=== PATIENT | female | born 1975 ===

== ENCOUNTER 2025-04-10 18:31 | Inpatient (IN) | payer MEDICAID ==
[2025-04-10 19:11] LABS: BASOPHILS ABSOLUTE AUTO 0.03 K/uL (0.00-0.10); BASOPHILS PERCENT AUTO 0.1 % (0.1-1.3); EOSINOPHILS PERCENT AUTO 0.0 % (0.0-5.4); IMMATURE GRAN ABSOLUTE AUTO 0.13 K/uL (0.00-0.23); IMMATURE GRAN PERCENT AUTO 0.6 % (0.0-0.7); LYMPHOCYTES ABSOLUTE AUTO 1.36 K/uL (0.8-3.3); LYMPHOCYTES PERCENT AUTO 6.1 % (11.4-47.7); MONOCYTES ABSOLUTE AUTO 0.74 K/uL (0.20-0.90); MONOCYTES PERCENT AUTO 3.3 % (3.3-12.6); NEUTROPHILS ABSOLUTE AUTO 20.07 K/uL (1.0-7.6); NEUTROPHILS PERCENT AUTO 89.9 % (40.0-78.1); PLATELET COUNT,PLT 230 K/uL (130-375); RED BLOOD CELL COUNT 4.55 M/uL (3.77-5.24); WHITE BLOOD CELL COUNT,WBC 22.3 K/uL (3.2-11.0)
[2025-04-10 19:12] LABS: EOSINOPHILS ABSOLUTE AUTO 0.00 K/uL (0.00-0.40)
[2025-04-10] MEDS ORDERED: Ondansetron 4 MG/2 ML SDV ONE (19:17)
[2025-04-10] MEDS ORDERED: Glycopyrrolate 0.2 MG/ML 5 ML MDV ONE (19:17)
[2025-04-10] MEDS ORDERED: Succinylcholine 200 MG/10 ML MDV ONE (19:17)
[2025-04-10] MEDS ORDERED: Dexamethasone 4 MG/ML SDV ONE (19:17)
[2025-04-10] MEDS ORDERED: fentaNYL 250 MCG/5 ML SDV ONE (19:17)
[2025-04-10] MEDS ORDERED: Propofol 200 MG/20 ML SDV ONE (19:17)
[2025-04-10 19:28] LABS: BLOOD UREA NITROGEN,BUN 12.0 mg/dL (7-18); CARBON DIOXIDE,CO2 22.0 mmol/L (21-32); CHLORIDE,CL 105.0 mmol/L (100-108); CREATININE 0.7 mg/dL (0.6-1.0); EST CRCL DRUG DOSING (CG) 82.1 mL/min; ESTIMATED GFR 105.0 mL/min (>60); GLUCOSE RANDOM 125.0 mg/dL (74-106); POTASSIUM,K 3.7 mmol/L (3.6-5.2); SODIUM,NA 136.0 mmol/L (140-148)
[2025-04-10 19:29] LABS: INR 1.1
[2025-04-10] MEDS ORDERED: Lactated Ringers 1,000 ML ONE (19:55)
[2025-04-10] MEDS: Bupivacaine 0.25%/EPINEPHrine 1:200,000 30 ML SDV ONE (20:17)
[2025-04-10] MEDS ORDERED: fentaNYL 100 MCG/2 ML SDV ONE (21:56)
[2025-04-11] MEDS: Piperacillin/Tazobactam/Dext 100 ML IV SCH (00:27)
[2025-04-11] MEDS: Heparin Sodium 5,000 Units/ML Vial SUBCUT SCH (05:39)
[2025-04-11 06:26] LABS: BASOPHILS ABSOLUTE AUTO 0.04 K/uL (0.00-0.10); BASOPHILS PERCENT AUTO 0.1 % (0.1-1.3); EOSINOPHILS PERCENT AUTO 0.0 % (0.0-5.4); IMMATURE GRAN ABSOLUTE AUTO 0.30 K/uL (0.00-0.23); IMMATURE GRAN PERCENT AUTO 1.0 % (0.0-0.7); LYMPHOCYTES ABSOLUTE AUTO 1.52 K/uL (0.8-3.3); LYMPHOCYTES PERCENT AUTO 5.2 % (11.4-47.7); MONOCYTES ABSOLUTE AUTO 0.96 K/uL (0.20-0.90); MONOCYTES PERCENT AUTO 3.3 % (3.3-12.6); NEUTROPHILS ABSOLUTE AUTO 26.20 K/uL (1.0-7.6); NEUTROPHILS PERCENT AUTO 90.4 % (40.0-78.1); PLATELET COUNT,PLT 273 K/uL (130-375); RED BLOOD CELL COUNT 3.76 M/uL (3.77-5.24); WHITE BLOOD CELL COUNT,WBC 29.0 K/uL (3.2-11.0)
[2025-04-11 06:41] LABS: EOSINOPHILS ABSOLUTE AUTO 0.00 K/uL (0.00-0.40)
[2025-04-11 06:47] LABS: BLOOD UREA NITROGEN,BUN 16.0 mg/dL (7-18); CARBON DIOXIDE,CO2 20.0 mmol/L (21-32); CHLORIDE,CL 108.0 mmol/L (100-108); CREATININE 0.8 mg/dL (0.6-1.0); EST CRCL DRUG DOSING (CG) 71.84 mL/min; ESTIMATED GFR 89.0 mL/min (>60); GLUCOSE RANDOM 158.0 mg/dL (74-106); POTASSIUM,K 4.1 mmol/L (3.6-5.2); SODIUM,NA 138.0 mmol/L (140-148)
[2025-04-11] MEDS: Ondansetron 4 MG/2 ML SDV IV PRN (07:03)
[2025-04-11] MEDS: Insulin Lispro 100 Unit/ML 3 ML KwikPen SUBCUT SCH (07:33)
[2025-04-11] MEDS: Acetaminophen 1,000 MG in Premix Bag 1 BAG IV ONE (07:37)
[2025-04-11] MEDS ORDERED: 50% Dextrose in Water 50 ML Syringe IV PRN (08:39)
[2025-04-11] MEDS ORDERED: Glucose Gel 15 GM in 37.5 GM Tube PO PRN (08:39)
[2025-04-11 08:47] LABS: INR 1.1
[2025-04-11 08:55] LABS: A/G RATIO 0.6 (1.2-2.2); ALANINE AMINOTRANSFERASE,ALT 31.0 U/L (12-78); ASPARTATE AMNIOTRANSFERASE,AST 24.0 U/L (15-37); BILIRUBIN DIRECT 0.42 mg/dL (0.0-0.2); BILIRUBIN INDIRECT 0.48; BILIRUBIN TOTAL 0.9 mg/dL (0.2-1.0); PROTEIN TOTAL,TP 5.7 g/dL (6.4-8.2)
[2025-04-11] MEDS: diphenhydrAMINE 50 MG/ML SDV IVPUSH ONE (12:52)
[2025-04-12 06:08] LABS: PLATELET COUNT,PLT 225.0 K/uL (130-375); RED BLOOD CELL COUNT 3.07 M/uL (3.77-5.24); WHITE BLOOD CELL COUNT,WBC 16.6 K/uL (3.2-11.0)
[2025-04-12 06:32] LABS: A/G RATIO 0.5 (1.2-2.2); ALANINE AMINOTRANSFERASE,ALT 54 U/L (12-78); ASPARTATE AMNIOTRANSFERASE,AST 46 U/L (15-37); BILIRUBIN TOTAL 0.4 mg/dL (0.2-1.0); BLOOD UREA NITROGEN,BUN 33 mg/dL (7-18); CARBON DIOXIDE,CO2 22 mmol/L (21-32); CHLORIDE,CL 111 mmol/L (100-108); CREATININE 0.8 mg/dL (0.6-1.0); EST CRCL DRUG DOSING (CG) 71.84 mL/min; ESTIMATED GFR 89 mL/min (>60); GLUCOSE RANDOM 179 mg/dL (74-106); POTASSIUM,K 4.3 mmol/L (3.6-5.2); PROTEIN TOTAL,TP 5.4 g/dL (6.4-8.2); SODIUM,NA 139 mmol/L (140-148)
[2025-04-12] MEDS ORDERED: Albuterol 0.083% 2.5 MG/3 ML Neb Soln NEB PRN (09:27)
[2025-04-12] MEDS: Sodium Chloride 0.9% 10 ML Syringe FLUSH ONE (11:26)
[2025-04-12] MEDS: Iopamidol 612 MG/ML 100 ML Bottle IV PRN (12:03)
[2025-04-12] MEDS: Iopamidol 612 MG/ML 30 ML SDV PO ONE (12:03)
[2025-04-13 06:11] LABS: PLATELET COUNT,PLT 174.0 K/uL (130-375); RED BLOOD CELL COUNT 2.66 M/uL (3.77-5.24); WHITE BLOOD CELL COUNT,WBC 10.0 K/uL (3.2-11.0)
[2025-04-13 06:24] LABS: BLOOD UREA NITROGEN,BUN 15.0 mg/dL (7-18); CARBON DIOXIDE,CO2 20.0 mmol/L (21-32); CHLORIDE,CL 109.0 mmol/L (100-108); CREATININE 0.6 mg/dL (0.6-1.0); EST CRCL DRUG DOSING (CG) 95.79 mL/min; ESTIMATED GFR 109.0 mL/min (>60); GLUCOSE RANDOM 103.0 mg/dL (74-106); POTASSIUM,K 3.9 mmol/L (3.6-5.2); SODIUM,NA 138.0 mmol/L (140-148)
[2025-04-13] MEDS: Insulin Glargine,Human Rec. Analog 100 Units/ML 3 ML Pen SUBCUT SCH (17:30)
[2025-04-13] MEDS: Acetaminophen/HYDROcodone 108-2.5 MG/5 ML Soln 15 ML UD Cup GTUBE PRN (17:58)
[2025-04-14 06:19] LABS: PLATELET COUNT,PLT 154.0 K/uL (130-375); RED BLOOD CELL COUNT 2.98 M/uL (3.77-5.24); WHITE BLOOD CELL COUNT,WBC 7.6 K/uL (3.2-11.0)
[2025-04-14 06:35] LABS: BLOOD UREA NITROGEN,BUN 9.0 mg/dL (7-18); CARBON DIOXIDE,CO2 23.0 mmol/L (21-32); CHLORIDE,CL 108.0 mmol/L (100-108); CREATININE 0.7 mg/dL (0.6-1.0); EST CRCL DRUG DOSING (CG) 82.1 mL/min; ESTIMATED GFR 105.0 mL/min (>60); GLUCOSE RANDOM 88.0 mg/dL (74-106); POTASSIUM,K 3.6 mmol/L (3.6-5.2); SODIUM,NA 140.0 mmol/L (140-148)
[2025-04-14] MEDS: Phenol/Sodium Phenolate Spray 180 ML Bottle MUCMEM PRN (19:20)
[2025-04-15 05:48] LABS: BASOPHILS ABSOLUTE AUTO 0.03 K/uL (0.00-0.10); BASOPHILS PERCENT AUTO 0.4 % (0.1-1.3); EOSINOPHILS ABSOLUTE AUTO 0.08 K/uL (0.00-0.40); EOSINOPHILS PERCENT AUTO 1.2 % (0.0-5.4); IMMATURE GRAN ABSOLUTE AUTO 0.04 K/uL (0.00-0.23); IMMATURE GRAN PERCENT AUTO 0.6 % (0.0-0.7); LYMPHOCYTES ABSOLUTE AUTO 1.06 K/uL (0.8-3.3); LYMPHOCYTES PERCENT AUTO 15.3 % (11.4-47.7); MONOCYTES ABSOLUTE AUTO 0.34 K/uL (0.20-0.90); MONOCYTES PERCENT AUTO 4.9 % (3.3-12.6); NEUTROPHILS ABSOLUTE AUTO 5.40 K/uL (1.0-7.6); NEUTROPHILS PERCENT AUTO 77.6 % (40.0-78.1); PLATELET COUNT,PLT 181 K/uL (130-375); RED BLOOD CELL COUNT 2.99 M/uL (3.77-5.24); WHITE BLOOD CELL COUNT,WBC 7.0 K/uL (3.2-11.0)
[2025-04-15 06:01] LABS: BLOOD UREA NITROGEN,BUN 4.0 mg/dL (7-18); CARBON DIOXIDE,CO2 27.0 mmol/L (21-32); CHLORIDE,CL 103.0 mmol/L (100-108); CREATININE 0.7 mg/dL (0.6-1.0); EST CRCL DRUG DOSING (CG) 82.1 mL/min; ESTIMATED GFR 105.0 mL/min (>60); GLUCOSE RANDOM 235.0 mg/dL (74-106); POTASSIUM,K 3.5 mmol/L (3.6-5.2); SODIUM,NA 136.0 mmol/L (140-148)
[2025-04-15] MEDS: Heparin Sodium 5,000 Units/ML Vial SUBCUT SCH (11:51)
[2025-04-16 06:04] LABS: BLOOD UREA NITROGEN,BUN 6.0 mg/dL (7-18); CARBON DIOXIDE,CO2 30.0 mmol/L (21-32); CHLORIDE,CL 102.0 mmol/L (100-108); CREATININE 0.7 mg/dL (0.6-1.0); EST CRCL DRUG DOSING (CG) 82.1 mL/min; ESTIMATED GFR 105.0 mL/min (>60); GLUCOSE RANDOM 215.0 mg/dL (74-106); POTASSIUM,K 3.7 mmol/L (3.6-5.2); SODIUM,NA 138.0 mmol/L (140-148)
[2025-04-16] MEDS: Iopamidol 612 MG/ML 100 ML Bottle IV SCH (15:14)
[2025-04-16] MEDS: Sodium Chloride 0.9% 10 ML Syringe FLUSH ONE (15:14)
[2025-04-16] MEDS: Iopamidol 612 MG/ML 30 ML SDV PO ONE (16:14)
[2025-04-17 06:06] LABS: PLATELET COUNT,PLT 245.0 K/uL (130-375); RED BLOOD CELL COUNT 3.15 M/uL (3.77-5.24); WHITE BLOOD CELL COUNT,WBC 9.2 K/uL (3.2-11.0)
[2025-04-17 06:27] LABS: A/G RATIO 0.5 (1.2-2.2); ALANINE AMINOTRANSFERASE,ALT 20 U/L (12-78); ASPARTATE AMNIOTRANSFERASE,AST 16 U/L (15-37); BILIRUBIN TOTAL 0.3 mg/dL (0.2-1.0); BLOOD UREA NITROGEN,BUN 7 mg/dL (7-18); CARBON DIOXIDE,CO2 31 mmol/L (21-32); CHLORIDE,CL 102 mmol/L (100-108); CREATININE 0.8 mg/dL (0.6-1.0); EST CRCL DRUG DOSING (CG) 71.84 mL/min; ESTIMATED GFR 89 mL/min (>60); GLUCOSE RANDOM 160 mg/dL (74-106); POTASSIUM,K 3.7 mmol/L (3.6-5.2); PROTEIN TOTAL,TP 6.2 g/dL (6.4-8.2); SODIUM,NA 138 mmol/L (140-148)
[2025-04-17] MEDS ORDERED: Sodium Chloride 0.9% 10 ML Syringe IV PRN (10:29)
== END 2025-04-18 16:34 | disposition home or self-care (01) | DRG 335 ==
LOC: JP.MS 18:31
PROVIDERS: ADMIT Surgery; ATTEND Surgery
PROC: 0DNU4ZZ Release Omentum, Percutaneous Endoscopic Approach (ICD-10-PCS; 2025-04-10)
PROC: 0DH63UZ Insertion of Feeding Device into Stomach, Percutaneous Approach (ICD-10-PCS; 2025-04-10)
PROC: 3E03329 Introduction of Other Anti-infective into Peripheral Vein, Percutaneous Approach (ICD-10-PCS; 2025-04-10)
PROC: 0FN04ZZ Release Liver, Percutaneous Endoscopic Approach (ICD-10-PCS; principal; 2025-04-10 19:30)
PROC: 30233N1 Transfusion of Nonautologous Red Blood Cells into Peripheral Vein, Percutaneous Approach (ICD-10-PCS; 2025-04-11)
DX: K25.5 Chronic or unspecified gastric ulcer with perforation (principal); K65.9 Peritonitis, unspecified; Z68.41 Body mass index [BMI] 40.0-44.9, adult; D62 Acute posthemorrhagic anemia; K66.8 Other specified disorders of peritoneum; F17.210 Nicotine dependence, cigarettes, uncomplicated; I10 Essential (primary) hypertension; E11.9 Type 2 diabetes mellitus without complications; E66.01 Morbid (severe) obesity due to excess calories; D72.829 Elevated white blood cell count, unspecified; J45.909 Unspecified asthma, uncomplicated; F32.A Depression, unspecified; K74.60 Unspecified cirrhosis of liver; T18.2XXA Foreign body in stomach, initial encounter; Z88.6 Allergy status to analgesic agent; Z98.84 Bariatric surgery status; Z88.8 Allergy status to other drugs, medicaments and biological substances; Z79.51 Long term (current) use of inhaled steroids; Z90.49 Acquired absence of other specified parts of digestive tract; Z98.890 Other specified postprocedural states; Z79.01 Long term (current) use of anticoagulants; Z79.899 Other long term (current) drug therapy; Z79.4 Long term (current) use of insulin
CPT/HCPCS: 00840-QZ; 36415; 36430; 51702; 71045; 74177; 74177-26; 80048; 80053; 80076; 82947; 83036; 83605; 83735; 85018; 85025; 85027; 85610; 86850; 86900; 86901; 86920; 86922; 93005; 93010; 97110-GP; 97162-GP; 97530-GP; 99231; 99232; A9270-GY; J0131; J0330; J1100; J1171; J1200; J1596; J1644; J1815-GY; J2405; J2470; J2543; J2704; J2710; J3010; J3480; J3490; J7030; J7120; P9016; Q9967